=== PATIENT | male | born 1995 | race African-American/Black ===

== ENCOUNTER 2016-09-11 06:55 | Emergency (ER) | payer OTHER ==
[~2016-09-11] VITALS: Ht 188 cm; Wt 106.6 kg
[~2016-09-11 06:55] MED LIST: ANTIVERT 25MG #1 PAC PO; INDOMETHACIN50 MG PO; ZOFRAN4 M1 PO
--- NOTE | 2016-09-11 08:13 | ED GI/GU/ABDOMINAL COMPLAINT ---
History of Present Illness General Chief Complaint: Nausea, Vomiting, Diarrhea Stated Complaint: NAUSEA,VOMITING,CRANE,CHILLS Source: patient Exam Limitations: no limitations Vital Signs & Intake/Output Vital Signs & Intake/Output ED Intake and Output 09/12 0000 09/11 1200 Intake Total Output Total Balance Patient 235 lb Weight Allergies Coded Allergies: No Known Drug Allergies (09/11/16) Uncoded Allergies: POLLEN (SNEEZING, WATERY EYES, ITCHING 02/25/15) Reconcile Medications Meclizine (Antivert) 25 MG PAC 1 TAB PO TID DIZZINESS Ondansetron (Zofran Odt) 4 MG ODT 1 TAB PO Q8HR PRN NAUSEA Triage Note: C/O VOMITING X 4 DAYS WITH HEADACHE, SWEATING, DIARRHEA. DENIES ABDOMINAL PAIN. Triage Nurses Notes Reviewed? yes HPI: This is a 21-year-old male with insignificant past medical history who presents with a chief complaint of 4 days of nausea, vomiting and malaise for 4 days. Patient states that symptoms started with a sore throat, progressed to a headache, now is experiencing nausea and vomiting. Patient states he vomits once a day. He says it happens around 4 AM and it wakes him up from sleep. His diarrhea is described as 3 loose bowel movements a intermittently throughout the day. No bright red blood noted. He states his throat feels better, however the headaches are still persistent. Patient denies any exacerbating or relieving factors other than warm showers. Patient's social history significant for hard liquor consumption on a regular basis, cigarettes, up to half pack a day, he also smokes "so much pot, I don't even know," but denies any IV drugs or any other street drugs. Patient states that he has not been drinking or smoking in the past 4 days as his nausea and vomiting to allow him to do so. Shortness of breath, hematuria, hematochezia, melena, recent travel, sick contacts, exotic food ingestion, or any other change in his routine. (STARLA LIPSCOMB,ANTONIO) Onset: Abrupt Duration: day(s): (4) Timing: recent history Associated Symptoms: headache, nausea/vomiting (ARACELI LIPSCOMB,PAUL) Past History Travel History Traveled to [place] past 21 day No Medical History Neurological: NONE EENT: NONE Cardiovascular: NONE Respiratory: NONE Gastrointestinal: NONE Hepatic: NONE Renal: NONE Musculoskeletal: R WRIST FX 02/25/15 Psychiatric: NONE Endocrine: NONE Tetanus Vaccine: 02/25/15 Surgical History Surgical History: N Psychosocial History What is your primary language Upper Sorbian Tobacco Use: Current Daily Use Daily Tobacco Use Amount/Type: => 5 Cigarettes daily ETOH Use: occasional use Illicit Drug Use: marijuana Family History Hx Contributory? No (ANTONIO CHA MD) Medical History Any Pertinent Medical History? see below for history (ARACELI LIPSCOMB,PAUL) Review of Systems Review of Systems Constitutional: Reports: chills, fever, malaise, weakness. Denies: diaphoresis. EENTM: Denies: no symptoms. Respiratory: Denies: cough, hemoptysis, orthopnea, short of breath, sputum production, stridor, wheezing. Cardiovascular: Denies: chest pain, palpitations. GI: Reports: diarrhea, nausea, vomiting. Denies: abdominal pain, constipation, distention, bowel incontinence, melena, bloody stool, changes in stool. Genitourinary: Reports: no symptoms. Musculoskeletal: Reports: no symptoms. Skin: Reports: no symptoms. (ANTONIO CHA MD) Physical Exam Physical Exam General Appearance: well developed/nourished, no apparent distress, alert, awake , comfortable Head: atraumatic, normal appearance Eyes: Bilateral: normal appearance, PERRL, EOMI, normal inspection. Ears, Nose, Throat, Mouth: upon inspection of oral cavity, patient has good dentition, however he has been drinking copious amounts of orange Gatorade so unable to appreciate erythema. He does not have any tonsillar exudates, uvula midline. Neck: supple, full range of motion Respiratory: chest non-tender, no respiratory distress, quiet respiration, lungs clear Cardiovascular: regular rate/rhythm Gastrointestinal: normal bowel sounds, soft, non-tender Core Measures ACS in differential dx? No Severe Sepsis Present: No Septic Shock Present: No (ANTONIO CHA MD) Progress Differential Diagnosis: flu strep cannabanoid-associated side effect Plan of Care: Orders Procedure Date/time Status RAPID VIRAL INFLUENZA A 09/11 758 Active THROAT CULTURE W/QUICK STREP 09/11 758 Active Microbiology 09/11 0810 NASOPHARYN: Influenza Virus A & B Rapid Smear - RECD Initial ED EKG: none (ANTONIO CHA MD) Departure Departure Disposition: HOME OR SELF CARE Condition: Stable Clinical Impression Primary Impression: Cannabis abuse Secondary Impressions: Gastroenteritis and colitis, viral Referrals: JUDITH REEVES MD (PCP/Family) Additional Instructions: If your symptoms continue to worsen then return to ED. Please contact PCP regarding your ED visit and follow-up within 1 week. Departure Forms: Customer Survey General Discharge Information (ANTONIO CHA MD) Resident Co-Sign Statement Statement: ED Attending supervision documentation- [X] I saw and evaluated the patient. I have also reviewed all the pertinent lab results and diagnostic results. I agree with the findings and the plan of care as documented in the Resident's documentation. [X] I have reviewed the ED Record and agree with the Resident's documentation. [] Additions or exceptions (if any) to the Resident's note and plan are summarized below: [] (ARACELI LIPSCOMB,PAUL)
[2016-09-11 09:11] VITALS: BP 126/85
== END 2016-09-11 09:27 ==
LOC: ERH 06:55
DX: F12.10 Cannabis abuse, uncomplicated (principal); A08.4 Viral intestinal infection, unspecified
CPT/HCPCS: 87804; 87804-59; 96374; J2405; J7040